=== PATIENT | female | born 1980 | race Caucasian/White ===

== ENCOUNTER 2021-10-08 07:53 | Emergency (ER) | payer SELFPAY ==
[2021-10-08 07:56] VITALS: BP 146/77; PULSE 95; RESP 18; TEMP 36.7; O2SAT 96
--- NOTE | 2021-10-08 08:03 | ED.GENADUL_ITS ---
Discharge Plan Disposition Patient Disposition: HOME Condition: Stable Discharge Details Clinical Impression: Chronic cough, Stress incontinence of urine, Skin pimple Primary Care Provider: Unknown,Unknown ED Provider: Sue Dougherty Discharge Instructions Instructions: How to Stop Smoking (ED), Urinary Incontinence (ED), Chronic Cough (ED), Warm Compress or Soak (ED) Additional Instructions: Your chest x-ray today is reassuring and shows no evidence of acute concerning or significant findings. Your urine test does not appear consistent with an acute urinary tract infection. Your COVID test is pending and you will be notified regarding your results. Please quarantine until your result is available and if confirmed to be negative. Drink plenty of fluids and get plenty of rest. Call your primary care doctor for referral to urology for your urinary leakage with coughing. This is most likely related to stress incontinence due to increased abdominal pressure with with coughing. Apply warm compresses for 20 minutes at at time to the lump on the back of your neck. If you notice increased pain, redness or swelling you can apply topical a ntibiotic ointment one to two times daily. Return immediately to the emergency department if you develop any worsening or new concerning symptoms. Stand Alone Forms: PENDING COVID-19 TESTING Discharge Data Discharge Date/Time-TO BE ENTERED AT DEPARTURE: 10/08/21 09:41 Discharge Physician: Sue Dougherty Medical Decision Making 0800 -- 41-year-old female with a history of asthma presents with multiple complaints, productive cough and urinating with coughing with strong smell of urine for the past 6 weeks, and a bug bite on her neck since last night. Blood pressure mildly hypertensive. Patient appears comfortable and nontoxic. She has normal respiratory rate and oxygen saturation. Normal ENT exam. Lungs clear bilaterally. Abdomen soft nontender. No CVA tenderness. No meningeal signs. For her cough, suspect viral process, also consider chronic cough in the setting of smoking, bronchitis, pneumonia, COVID, GERD or allergies. Do not see an indication for lab work. Will obtain a COVID swab and refer for chest x-ray. For her urinating with coughing, discussed with patient that as she has experienced childbirth, this causes weakening of the pelvic floor muscles and can result in urinating with coughing, sneezing or any movements that cause increased abdominal pressure. For the strong smelling urine, will rule out UTI but do not see indication for labs or imaging. She denies any known exposure to recent STI and declines cervical cultures and states she will follow-up in [place] for STD testing if desired. For her complaint of bug bite , This is not itchy but rather painful and may be more consistent with a pimple. There is no fluctuance consistent with an abscess noted. She is advised to apply warm compresses and topical antibiotics. 0925 -- CXR negative. COVID pending. Advised to follow up with the primary care doctor for re-evaluation. Usual and customary return precautions given prior to discharge. Medical Records Medical records reviewed: Yes I reviewed the patient's medical records. Imaging Data Radiologic Study: Radiologist's impression: XR CHEST 2V PA ? LATERAL CLINICAL HISTORY:? chronic cough, r/o acute disease TECHNIQUE:? 2D digital imaging was performed. COMPARISON:? No exams were available for comparison FINDINGS: MEDIASTINUM: Normal.? HEART: Normal. PULMONARY VASCULATURE: Normal. LUNGS: Clear. ? PLEURAL SPACE: No pleural effusion or pneumothorax. BONE:Unremarkable for age.? IMPRESSION: No acute abnormality.? Lab Data Lab results reviewed: Yes I reviewed the patient's lab results. Labs: Laboratory Tests Range/Units 10/08/21 10/08/21 08:02 08:45 Urine Color (Yellow) Yellow Urine Clarity (Clear) Clear Urine pH (5-8) 5.5 Ur Specific [place] (1.005-1.025) >= 1.030 H Urine Protein (Negative) mg/dL Negative Urine Ketones (Negative) mg/dL Negative Urine Blood (Negative) Trace-intact H Urine Nitrite (Negative) Negative Urine Bilirubin (Negative) Negative Urine Urobilinogen (Up TO 0.2) EU/dL 0.2 Ur Leukocyte Esterase (Negative) Negative Urine RBC (0-2) HPF 3-5 H Urine WBC (0-5) HPF 0-2 Ur Epithelial Cells (Negative) HPF Few Urine Crystals (Negative) HPF Negative Urine Bacteria (Negative) HPF Rare Urine Casts (Negative) LPF Negative Urine Mucus (Negative) Trace Ur Culture Indicated? No Urine Glucose (Negative) mg/dL Negative COVID-19 Source Nasal/Nares SARS-CoV-2 (PCR) (Negative) Negative HPI General Mode of arrival: ambulatory . Date/Time Provider Initiated Documentation: 10/08/21 08:02 . Limitations to Documentation: no limitations . Information obtained by: patient . HPI Narrative: Patient is a 41-year-old female presents the ED with multiple complaints. She is visiting here from [place] and is returning there tomorrow. She states she called the [facility] of Health for her multiple complaints and advised her to come to the hospital for evaluation. Patient states she has had a chronic cough for the past 6 weeks. She states she occasionally coughs up green sputum but states it is also sometimes white. She denies any known fever, chills, ear pain, sore throat, chest pain, shortness of breath or vomiting. She also states that she has been urinating when she has forceful coughing for the past 6 weeks. She states she notes a strong smell of her urine when it is dried within her undergarments. She also states she noted a bump on the right side of her posterior neck yesterday and would like this checked out as well. She states she smokes cigarettes and marijuana and this sometimes makes her coughing with urinating worse. She states she was seen for the symptoms in [place] over the last few weeks and diagnosed with an upper respiratory infection and was placed on antibiotics and tramadol. She also states she has a history of bladder mesh performed in [place], [place] several years ago. General Stated Complaint: Urinary IBRAHIMA: 3 Review of Systems All systems reviewed & are unremarkable except as noted in HPI and below Constitutional Constitutional: Denies chills, Denies excessive sweating, Denies fatigue, Denies fever(s), Denies weakness and Denies weight loss Eyes Eyes: Reports system reviewed and no additional complaints, except as documented and Denies blurry vision ENT Ears, Nose, Mouth, and Throat: Denies vertigo, Denies dizziness, Denies otalgia, Denies nasal congestion, Denies sore throat and Denies throat swelling Cardiovascular Cardiovascular: Denies chest pain, Denies syncope, Denies rapid heart rate and Denies dyspnea Respiratory Respiratory: Denies chest congestion, Reports cough, Denies pain on inspiration and Denies dyspnea Gastrointestinal Gastrointestinal: Denies abdominal pain, Denies diarrhea and Denies vomiting Genitourinary Genitourinary: Denies hematuria, Denies difficulty voiding, Denies genital lesions, Denies dysuria, Denies flank pain and Denies vaginal discharge Musculoskeletal Musculoskeletal: Denies back pain and Denies joint swelling Integumentary/Breasts Skin/Breast: Denies lesions and Denies rash Neurologic Neurologic: Denies behavioral changes, Denies confusion, Denies vertigo, Denies dizziness, Denies syncope, Denies localized weakness and Denies weakness Psychiatric Psychiatric: Denies behavioral changes, Denies confusion and Denies depression Endocrine Endocrine: Denies excessive sweating and Denies fatigue Hematologic/Lymphatic Hematologic/Lymphatic: Denies easy bruising and Denies lymphadenopathy Allergic/Immunologic Allergic/Immunologic: Denies throat swelling PFSH All Active Problems (Updated 10/08/21 @ 09:27 by Sue Dougherty DO) Chronic cough (Acute) Stress incontinence of urine (Acute) Skin pimple (Acute) Medical History (Updated 10/08/21 @ 09:27 by Sue Dougherty DO) Asthma Bipolar affective disorder Surgical History (Updated 10/08/21 @ 08:51 by Sue Dougherty DO) History of bladder surgery Mesh History of hysterectomy Hx of cholecystectomy S/p bilateral myringotomy with tube placement Social History Smoking/Tobacco Use Status: Current every day Tobacco Type: cigarettes Smoking risk assessment performed?: Yes Alcohol Intake: current Alcohol Intake frequency: a few times a week Substance use type: marijuana Do you feel safe at home: Yes Do you feel safe in your relationship?: Yes Exam Const General: cooperative Orientation: alert, awake and oriented x3 HENMT Head: normal to inspection Ears: hearing grossly normal bilaterally, external ears normal and TM's normal bilaterally General nose exam: external nose normal Face and sinus: normal facial exam Mouth: oral mucosae normal Teeth and gingiva: dentition normal Throat: posterior oropharynx normal Eyes General: appearance normal, both eyes and all related structures Eyelids: eyelids normal Pupils: PERRL EOM: EOM intact bilaterally Neck Neck: normal visual inspection Lymphatic: no lymphadenopathy noted Neck images: 1. 1 x 1 cm mildly erythematous and tender papule. There is no fluctuance, significant induration, drainage or bleeding. Chest Chest: normal inspection of the chest Resp Effort & Inspection: normal respiratory effort and able to speak in complete sentences Auscultation: clear to auscultation bilaterally Cardio Rate: regular rate Rhythm: regular rhythm GI Inspection: normal to inspection Palpation: soft, not firm, no guarding, no hepatosplenomegaly, no masses and nontender Auscultation: normal bowel sounds Back/Spine/Pelvis Back: no CVA tenderness Skin General skin exam: no rashes or lesions noted Neuro General: patient alert and patient awake Cognition: normal cognition Speech: speech normal Gait: normal gait Motor: muscle tone normal throughout Sensory Exam: no sensory deficits noted Extrem General: normal to inspection, full ROM and capillary refill normal Psych Appearance: grossly normal Mental Status: mental status grossly normal Speech and Movement: speech and movement normal Affect: normal affect Thought Process: normal Course Vital Signs Vital signs: Vital Signs Temperature 98.1 F 10/08/21 07:56 Pulse 95 H 10/08/21 07:56 Respiratory Rate 18 10/08/21 07:56 Blood Pressure 146/77 H 10/08/21 07:56 Pulse Oximetry 96 10/08/21 07:56 Temperature 98.1 F 10/08/21 07:56 Temperature Source Temporal Artery Scan 10/08/21 07:56 Pulse 95 H 10/08/21 07:56 Respiratory Rate 18 10/08/21 07:56 Blood Pressure 146/77 H 10/08/21 07:56 Blood Pressure Position Sitting 10/08/21 07:56 Pulse Oximetry 96 10/08/21 07:56 Oxygen Delivery Method Room Air 10/08/21 07:56 Oxygen Flow Rate 0 10/08/21 07:56
[2021-10-08 08:15] LABS: Bilirubin Negative (Negative); Blood Trace-intact (Negative); Clarity Clear (Clear); Glucose Negative (Negative); Ketones Negative (Negative); Leukocyte Esterase Negative (Negative); Nitrite Negative (Negative); Specific Gravity >= 1.030 (1.005-1.025); Urobilinogen 0.2 EU/dL (Up TO 0.2); pH 5.5 (5-8)
--- NOTE | 2021-10-08 08:30 | DI.RAD_ITS ---
Exam(s) XR CHEST 2V PA LATERAL EXAM: XR CHEST 2V PA LATERAL CLINICAL HISTORY: chronic cough, r/o acute disease TECHNIQUE: 2D digital imaging was performed. COMPARISON: No exams were available for comparison FINDINGS: MEDIASTINUM: Normal. HEART: Normal. PULMONARY VASCULATURE: Normal. LUNGS: Clear. PLEURAL SPACE: No pleural effusion or pneumothorax. BONE:Unremarkable for age. IMPRESSION: No acute abnormality. DATA REPOSITORY: RADIATION DOSE DELIVERED:
[2021-10-08 08:50] LABS: Source Nasal/Nares
[2021-10-08 08:54] LABS: Bacteria Rare HPF (Negative); C & S Indicated? No; Casts Negative LPF (Negative); Crystals Negative HPF (Negative); Epithelial Cells Few HPF (Negative); Mucus Trace (Negative); WBC 0-2 HPF (0-5)
[2021-10-08 09:32] VITALS: PULSE 74; RESP 16; O2SAT 99
[2021-10-08 09:49] LABS: COVID-19 PCR Negative (Negative)
--- NOTE | 2021-10-08 11:09 | NUR.NOTE ---
unable to call patient with her covid results due to lack of phone number. Will mail results to patient
== END 2021-10-08 09:41 | disposition home or self-care (01) ==
LOC: ER 10:26
PROVIDERS: Emergency Provider Physician Assistant
DX: R05.3 Chronic cough (principal); N39.3 Stress incontinence (female) (male); R23.8 Other skin changes
CPT/HCPCS: 81025; 87635; 99283; 71046; 81003; 81015

== ENCOUNTER 2023-05-02 15:05 | Emergency (ER) | payer MEDICAID, SELFPAY ==
[2023-05-02 15:20] VITALS: BP 147/119; PULSE 102; RESP 18; TEMP 37; O2SAT 98
--- NOTE | 2023-05-02 16:05 | ED.GENADUL_ITS ---
HPI General Stated Complaint: ChemExpose Mode of arrival: ambulatory. IBRAHIMA: 3 Date/Time Provider Initiated Documentation: 05/02/23 15:20. Limitations to Documentation: no limitations. Information obtained by: patient, family and RN notes reviewed. History of Present Illness Propane gas exposure, anxious, headache severe hour(s) (25) now resolved No relieving factors improve symptom(s), No exacerbating factors reported none Related Data Allergies Allergy/AdvReac Type Severity Reaction Status Date / Time codeine AdvReac Intermediate Unverified 05/02/23 15:29 erythromycin base AdvReac Intermediate Other (See Unverified 05/02/23 15:29 Comment) haloperidol [From Haldol] AdvReac Intermediate Unverified 05/02/23 15:29 loratadine [From Claritin-D] AdvReac Intermediate Unverified 05/02/23 15:29 Penicillins AdvReac Intermediate Unverified 05/02/23 15:29 pseudoephedrine AdvReac Intermediate Unverified 05/02/23 15:29 [From Claritin-D] prednisone AdvReac Mild Unverified 05/02/23 15:29 topiramate [From Topamax] AdvReac Unverified 05/02/23 15:29 Review of Systems Constitutional Constitutional: Denies chills, Denies fever(s), Reports headache(s), Reports malaise and Denies weakness ENT Ears, Nose, Mouth, and Throat: Reports dizziness, Reports headache(s), Reports nasal congestion and Denies sore throat Cardiovascular Cardiovascular: Denies chest pain, Reports syncope and Denies dyspnea Respiratory Respiratory: Denies dyspnea Gastrointestinal Gastrointestinal: Denies abdominal pain and Reports nausea Musculoskeletal Musculoskeletal: Reports tingling Integumentary/Breasts Skin/Breast: Denies rash Neurologic Neurologic: Reports dizziness, Reports syncope, Reports headache(s), Reports t ingling and Denies weakness Psychiatric Psychiatric: Reports anxiety PFSH All Active Problems Anxiety about health (Acute) Exposure to gaseous substance (Acute) Medical History Bipolar affective disorder Asthma Surgical History History of bladder surgery Mesh S/p bilateral myringotomy with tube placement Hx of cholecystectomy History of hysterectomy Social History Smoking/Tobacco Use Status: Current every day Tobacco Type: cigarettes Smoking risk assessment performed?: Yes Alcohol Intake: current Alcohol Intake frequency: a few times a week Substance use type: marijuana Housing: apartment Do you feel safe at home: Yes Do you feel safe in your relationship?: Yes Exam Const General: cooperative, no acute distress, anxious and not ill appearing Orientation: alert, awake and oriented x3 HENMT Mouth: moist mucous membranes Resp Effort & Inspection: normal respiratory effort, able to speak in complete sentences and no respiratory distress Auscultation: clear to auscultation bilaterally Cardio Rate: regular rate Rhythm: regular rhythm Heart Sounds: S1 normal and S2 normal Skin General skin exam: no rashes or lesions noted Neuro General: patient alert, patient awake, patient oriented x3, moves all extremities and no focal motor deficits Sensory Exam: no sensory deficits noted Psych Mood: anxious mood Course Vital Signs Vital signs: Vital Signs Temperature 37.0 C 05/02/23 15:20 Pulse 102 H 05/02/23 15:20 Respiratory Rate 18 05/02/23 15:20 Blood Pressure 147/119 H 05/02/23 15:20 Pulse Oximetry 98 05/02/23 15:20 Temperature 37.0 C 05/02/23 15:20 Temperature Source Temporal Artery Scan 05/02/23 15:20 Pulse 102 H 05/02/23 15:20 Respiratory Rate 18 05/02/23 15:20 Blood Pressure 147/119 H 05/02/23 15:20 Pulse Oximetry 98 05/02/23 15:20 Oxygen Delivery Method Room Air 05/02/23 15:20 Oxygen Flow Rate 0 05/02/23 15:20 Medical Decision Making Patient presenting to the emergency department for evaluation of propane gas exposure. Patient reports yesterday in her apartment building she walked into the [place] and had a significant smell of propane. It was not directly in her apartment but in the hallway. She did state significant history of anxiety and did have anxious like symptoms during this episode but also felt presyncopal confused and generally not well. This has been greater than 24 hours ago and today she states a lot of the symptoms have gone but she has felt some malaise. Physical exam is unremarkable. Carbon monoxide oximetry was utilized and patient had reading of 3. Patient is a long-term smoker. Patient also has not been in the area where she had the symptoms for greater than 24 hours and HVAC technicians have, and supposed to repair the issue. Given that patient has been in fresh air for greater than 24 hours, appears to have more acute anxious symptoms now compared to any worrisome exposure did discuss with patient possible workup but shared decision-making was utilized given overall nonworrisome exam and carbon monoxide reading of 3. After discussion patient stated that she was okay delaying any further workup and monitoring symptoms at home. After discussion of diagnosis and plan of care patient has no further needs, questions, or concerns and states clear understanding to return to the emergency department for any worsening symptoms. This documentation was generated using [employer] system, please disregard any oddities of phrase or misspellings. Quality:SDOH Health Related Social Needs: No Data to Display Discharge Plan Disposition Patient Disposition: Home Discharge Details Clinical Impression: Exposure to gaseous substance, Anxiety about health Primary Care Provider: Unknown,Unknown ED Provider: Bobby Rosa Discharge Instructions Instructions: Carbon Monoxide Poisoning (ED), Anxiety (ED) Additional Instructions: Please continue to monitor symptoms and return to the emergency department immediately for any new or significant worsening of your condition. Continue to get plenty of fresh air and follow-up with your primary care provider as needed for recheck. As discussed I would purchase carbon monoxide monitors for both your apartment and the hallway. If they alarm immediately get out of the area and call the appropriate authorities. Referrals: Primary Care Provider [Outside] (As needed for reassessment) Discharge Data Discharge Date/Time-TO BE ENTERED AT DEPARTURE: 05/02/23 16:17
[2023-05-02 16:10] VITALS: RESP 18
== END 2023-05-02 16:17 | disposition home or self-care (01) ==
PROVIDERS: Emergency Provider Nurse Practitioner Family
DX: R42 Dizziness and giddiness (principal); R51.9 Headache, unspecified; R45.89 Other symptoms and signs involving emotional state; Z77.29 Contact with and (suspected) exposure to other hazardous substances
CPT/HCPCS: 99282; 99283

== ENCOUNTER 2023-05-22 14:56 | Outpatient (REF) | payer MEDICAID, SELFPAY ==
[2023-05-22 22:37] LABS: Hepatitis B Surface Ag Negative (Negative)
[2023-05-22 23:07] LABS: Hepatitis C Ab w Rflx HCV PCR Negative (Negative)
[2023-05-22 23:14] LABS: HIV-1/2 Ag & Ab Screen Negative (Negative)
[2023-05-23 15:51] LABS: Chlamydia Result Negative (Negative); GC Result Negative (Negative)
[2023-05-25 11:00] LABS: Syphilis Serology (RPR) Negative (Negative)
== END 2023-05-22 14:57 | disposition home or self-care (01) ==
LOC: LBN 14:56
PROVIDERS: Visit Provider Physician Assistant Medical
DX: A63.8 Other specified predominantly sexually transmitted diseases (principal); Z11.4 Encounter for screening for human immunodeficiency virus [HIV]; Z11.59 Encounter for screening for other viral diseases
CPT/HCPCS: 86803; 87340; 87389; 87491; 87591; 86592

== ENCOUNTER 2023-06-21 20:00 | Emergency (ER) | payer MEDICAID, SELFPAY ==
[2023-06-21 20:02] VITALS: BP 173/115; PULSE 105; RESP 20; TEMP 37.1; O2SAT 99
--- NOTE | 2023-06-21 20:03 | W.ED.GENAD ---
Discharge Plan Disposition Patient Disposition: Home Condition: Stable Discharge Details Clinical Impression: Major depression Primary Care Provider: Unknown,Unknown ED Provider: Michela Silverman Discharge Instructions Instructions: Depression (DC) Additional Instructions: Follow safety plan as discussed with mental health provider. Please see attached copy Referrals: [facility] [Provider Group] HPI General Mode of arrival: ambulatory. Date/Time Provider Initiated Documentation: 06/21/23 20:02. Limitations to Documentation: no limitations. Information obtained by: patient. HPI Narrative: This is a 43-year-old female patient past medical history significant for bipolar disorder currently not on medication does not have a PCP appear at some point she sold her house in [place] to move up here with her daughter but is extremely unhappy living here. She states that daily she struggles to do simple daily tasks having to force herself to. She gives the example of she forced herself to get up to do the dishes but then was sorry she did the dishes and went for a car ride to [place] where she cried the whole way there and back. She denies any suicidal or homicidal ideation she just states it is hard to exist. The plan is for her to stay here for 3 more months until her daughter gets and then there can all move back to [place] together. Her daughter is here at bedside and very supportive. The patient states that she is sleeping well and she is eating and drinking. She denies any recent medical illness she denies chest pain shortness of breath nausea vomiting dizziness dysuria frequency diarrhea or constipation. She states that she has been substance user but has not used since October. She does not drink alcohol. She states she used to be on a vitamin B 12 injection Related Data Allergies Allergy/AdvReac Type Severity Reaction Status Date / Time quetiapine [From Seroquel] Allergy Intermediate Other (See Verified 06/21/23 20:12 Comment) ziprasidone Allergy Intermediate Other (See Verified 06/21/23 20:12 Comment) codeine AdvReac Intermediate Other (See Unverified 06/21/23 20:12 Comment) erythromycin base AdvReac Intermediate Other (See Unverified 06/21/23 20:12 Comment) haloperidol [From Haldol] AdvReac Intermediate Swelling/Ed Unverified 06/21/23 20:12 rach loratadine [From Claritin-D] AdvReac Intermediate Other (See Unverified 06/21/23 20:12 Comment) Penicillins AdvReac Intermediate Other (See Unverified 06/21/23 20:12 Comment) pseudoephedrine AdvReac Intermediate Other (See Unverified 06/21/23 20:12 [From Claritin-D] Comment) prednisone AdvReac Mild Other (See Unverified 06/21/23 20:12 Comment) topiramate [From Topamax] AdvReac Other (See Unverified 06/21/23 20:12 Comment) General IBRAHIMA: 3 Review of Systems All systems reviewed & are unremarkable except as noted in HPI and below Exam Narrative Exam Narrative: This is an overweight female older appearing than stated age in no acute distress head is atraumatic she is crying during intake she does make eye contact with me her head is atraumatic oral mucosa is moist does have tears neck is supple with full range of motion respirations even and unlabored cardiovascular she is pink warm dry well-perfused moves all extremities her abdomen is benign there are no rashes or lesions noted neurologic she is awake alert oriented psychiatric she is sad but cooperative and pleasant Medical Decision Making Patient presents for evaluation of major depression with no suicidal or homicidal ideation. She has no primary care provider here locally. She denies recent illness I do think it is reasonable to just check some basic labs including CMP CBC TSH and I will check a B12 as she states she used to get injections. Will obtain mental health consultation for discharge planning and outpatient follow-up. The consultation has been completed and a safety plan has been discussed with patient and copy provided. She is stable for discharge to home with outpatient mental health follow-up she will return sooner for new or worsening symptoms Medical Records Medical records reviewed: Yes I reviewed the patient's medical records. Lab Data Lab results reviewed: Yes I reviewed the patient's lab results. Labs: Laboratory Tests Range/Units 06/21/23 20:26 WBC (4.4-10.8) 10^3/uL 10.75 RBC (3.93-5.22) 10^6/uL 4.57 Hgb (11.2-15.7) g/dL 13.6 Hct (36.0-46.0) % 40.5 MCV (80-95) fL 89 MCH (27.0-33.0) pg 29.8 MCHC (32.0-36.0) % 33.6 RDW (11.7-14.6) % 11.9 Plt Count (130-400) 10^3/uL 407 H MPV (8.0-11.0) fL 8.9 Immature Gran % 0.4 Neutrophils % 64.4 Lymphocytes % 28.2 Monocytes % 5.0 Eosinophils % 1.8 Basophils % 0.2 Nucleated RBC % (0.0-0.3) % 0.0 Absolute Neutrophils (1.2-6.7) 10^3/uL 6.93 H Absolute Lymphocytes (1.2-3.4) 10^3/uL 3.03 Absolute Monocytes (0.1-0.8) 10^3/uL 0.54 Absolute Eosinophils (0.0-0.7) 10^3/uL 0.19 Absolute Basophils (0.0-0.2) 10^3/uL 0.02 Sodium (136-145) mmol/L 140 Potassium (3.5-5.1) mmol/L 3.7 Chloride (98-107) mmol/L 102 Carbon Dioxide (21.0-32.0) mmol/L 29.8 Anion Gap (3-11) mmol/L 8.2 BUN (7-18) mg/dL 17 Creatinine (0.55-1.02) mg/dL 0.9 Est GFR (CKD-EPI 2020) (mL/min/1.73m2) 80.84 Glucose (74-106) mg/dL 134 H Calcium (8.5-10.1) mg/dL 9.3 Total Bilirubin (0.2-1.0) mg/dL 0.6 AST (15-37) U/L 15 ALT (14-59) U/L 19 Alkaline Phosphatase (46-116) U/L 61 Total Protein (6.4-8.2) g/dL 7.7 Albumin (3.4-5.0) g/dL 3.7 Vitamin B12 (193-986) pg/mL 328 TSH (0.36-3.74) uIU/mL 2.41 Quality:SDOH Health Related Social Needs: No Data to Display PFSH All Active Problems (Updated 06/21/23 @ 21:34 by Michela Silverman NP) Major depression (Chronic) Medical History Bipolar affective disorder Asthma Surgical History History of bladder surgery Mesh S/p bilateral myringotomy with tube placement Hx of cholecystectomy History of hysterectomy Social History Smoking/Tobacco Use Status: Current every day Tobacco Type: cigarettes Smoking risk assessment performed?: Yes Alcohol Intake: current Alcohol Intake frequency: a few times a week Substance use type: marijuana Housing: apartment Do you feel safe at home: Yes Do you feel safe in your relationship?: Yes
[2023-06-21 20:30] LABS: Abs Immature Grans 0.04 10^3/uL (0.0-0.06); Absolute Basophil Count 0.02 10^3/uL (0.0-0.2); Absolute Eosinophil Count 0.19 10^3/uL (0.0-0.7); Absolute Lymphocyte Count 3.03 10^3/uL (1.2-3.4); Absolute Monocyte Count 0.54 10^3/uL (0.1-0.8); Absolute Neutrophil Count 6.93 10^3/uL (1.2-6.7); Basophils % 0.2; Eosinophils % 1.8; HCT 40.5 % (36.0-46.0); HGB 13.6 g/dL (11.2-15.7); Immature Grans % 0.4; Lymphocytes % 28.2; MCH 29.8 pg (27.0-33.0); MCHC 33.6 % (32.0-36.0); MCV 89 fL (80-95); MPV 8.9 fL (8.0-11.0); Neutrophils % 64.4; Platelet Count 407 10^3/uL (130-400); RBC 4.57 10^6/uL (3.93-5.22); RDW 11.9 % (11.7-14.6); RDW-SD 38.5 fL; WBC 10.75 10^3/uL (4.4-10.8)
[2023-06-21 21:10] LABS: ALT 19 U/L (14-59); AST 15 U/L (15-37); Albumin 3.7 g/dL (3.4-5.0); Alkaline Phosphatase 61 U/L (46-116); Anion Gap 8.2 mmol/L (3-11); BUN 17 mg/dL (7-18); Bilirubin, Total 0.6 mg/dL (0.2-1.0); CO2 29.8 mmol/L (21.0-32.0); CREATININE 0.9 mg/dL (0.55-1.02); Calcium 9.3 mg/dL (8.5-10.1); Chloride 102 mmol/L (98-107); Estimated GFR 80.84 (mL/min/1.73m2); Glucose 134 mg/dL (74-106); Potassium 3.7 mmol/L (3.5-5.1); Sodium 140 mmol/L (136-145); TSH (W/Ref FT4) 2.41 uIU/mL (0.36-3.74); Total Protein 7.7 g/dL (6.4-8.2); Vitamin B12 328 pg/mL (193-986)
== END 2023-06-21 21:52 | disposition home or self-care (01) ==
PROVIDERS: Emergency Provider Nurse Practitioner Acute Care
DX: F32.A Depression, unspecified (principal); F31.9 Bipolar disorder, unspecified; F17.210 Nicotine dependence, cigarettes, uncomplicated
CPT/HCPCS: 36415; 80053; 99283; 82607; 84443; 85025